=== PATIENT | female | born 1955 | race Caucasian/White ===

== ENCOUNTER → 2016-11-10 | Outpatient (CLI) | payer BC, OTHER ==
[2016-11-10 12:40] LABS: ABSOLUTE BASOPHILS # (AUTO) 0.1 10^3/uL (0.0-0.2); ABSOLUTE EOSINOPHILS # (AUTO) 0.3 10^3/uL (0.0-0.6); ABSOLUTE LYMPHOCYTES (AUTO) 3.4 10^3/uL (0.5-4.7); ABSOLUTE MONOCYTES (AUTO) 0.8 10^3/uL (0.1-1.4); ABSOLUTE NEUT (AUTO) 4.5 10^3/uL (1.7-8.2); EOSINOPHILS % (AUTO) 2.8 % (0-6); HEMATOCRIT 45.9 % (36.0-47.0); HEMOGLOBIN 15.8 g/dL (12.0-15.5); HGB HCT DIFFERENCE 1.5; LYMPHOCYTES % (AUTO) 37.7 % (13-45); MEAN CORPUSCULAR HEMOGLOBIN 30.3 pg (27.0-33.4); MEAN CORPUSCULAR HGB CONC 34.5 g/dL (32.0-36.0); MEAN CORPUSCULAR VOLUME 88 fl (80-97); MONOCYTES % (AUTO) 8.7 % (3-13); RED BLOOD COUNT 5.23 10^6/uL (3.72-5.28); RED CELL DISTRIBUTION WIDTH 14.4 % (11.5-14.0); SEGMENTED NEUTROPHILS % (AUTO) 49.8 % (42-78); WHITE BLOOD COUNT 9.1 10^3/uL (4.0-10.5)
[2016-11-10 13:05] LABS: ALANINE AMINOTRANSFERASE 29 U/L (9-52); ALBUMIN 4.3 g/dL (3.5-5.0); ALKALINE PHOSPHATASE 96 U/L (38-126); ANION GAP 11 (5-19); ASPARTATE AMINO TRANSFERASE 29 U/L (14-36); BILIRUBIN,DIRECT 0.4 mg/dL (0.0-0.4); BILIRUBIN,TOTAL 0.6 mg/dL (0.2-1.3); BLOOD UREA NITROGEN 15 mg/dL (7-20); CALCIUM 10.7 mg/dL (8.4-10.2); CARBON DIOXIDE 29 mmol/L (22-30); CHLORIDE 105 mmol/L (98-107); CREATININE RESULT 0.75 mg/dL (0.52-1.25); GLUCOSE 105 mg/dL (75-110); POTASSIUM 5.4 mmol/L (3.6-5.0); SODIUM 145.1 mmol/L (137-145); TOTAL PROTEIN 7.5 g/dL (6.3-8.2)
== END ==
LOC: OD 11:44
PROVIDERS: ATTEND Physician Assistant
DX: E55.9 Vitamin D deficiency, unspecified (principal); E03.9 Hypothyroidism, unspecified; M19.90 Unspecified osteoarthritis, unspecified site; Z79.899 Other long term (current) drug therapy
CPT/HCPCS: 36415; 80053; 85025

== ENCOUNTER → 2017-07-14 | Outpatient (CLI) | payer OTHER ==
--- NOTE | 2017-07-14 16:42 | WOMENS IMAGING REPORT ---
EXAM DESCRIPTION: 3D SCREENING MAMMO BILAT COMPLETED DATE/TIME: 07/14/2017 3:30 pm REASON FOR STUDY: SCREENING MAMMO Z12.31 ENCNTR SCREEN MAMMOGRAM FOR MALIGNANT NEOPLASM OF LYLY COMPARISON: 2008 TECHNIQUE: Standard craniocaudal and mediolateral oblique views of each breast recorded using digita l acquisition and breast tomosynthesis. LIMITATIONS: None. FINDINGS: No masses, calcifications or architectural distortion. No areas of suspicion. Read with the assistance of CAD. .[facility] - R2 Cenova Version 1.3 .[facility] Imaging - R2 Cenova Version 1.3 .[facility] Imaging - R2 Cenova Version 2.4 .[facility] [place] Cenova Version 2.4 .[facility] - R2 Corner Former Version 9.2 IMPRESSION: NORMAL MAMMOGRAM. BIRADS 1. BREAST DENSITY: a. The breasts are almost entirely fatty. BIRAD: 1 NEGATIVE RECOMMENDATION: ROUTINE SCREENING COMMENT: The patient has been notified of the results by letter per SA requirements. Additional no tification policies are in place for contacting patient with suspicious or incomplete findings. Quality ID #[id number]: The [employer] recommends an annual screening mammogram for women aged 40 years or over. This facility utilizes a reminder system to ensure that all patients receive reminder letters, and/or direct phone calls for appointments. This includes reminders for routine scr eening mammograms, diagnostic mammograms, or other Breast Imaging Interventions when appropriate. Th is patient will be placed in the appropriate reminder system. The [employer] (ACR) has developed recommendations for screening MRI of the breast s in certain patient populations, to be used in conjunction with mammography. Breast MRI surveillanc e may be appropriate for women with more than 20% lifetime risk of developing breast cancer as deter mined by genetic testing, significant family history of the disease, or history of mantle radiation f or Hodgkins Disease. ACR Practice Guidelines 2008. DBT Technology DBT is a type of tomographic mammography. With conventional mammography, overlapping breast tissue ma y make lesions difficult to detect, even with good compression. DBT uses an x-ray tube that rotates a round the breast, taking images at different angles. These images are then combined to create thin sl ices of the breast that the radiologist can view as a 3D reconstruction. The ITao unit can perform full-field digital mammograms (2D imaging); or DBT (3D imaging); or both, in a combination mode that quickly performs both the mammogram and the tomosynthesis scan while the breast is still compressed. PQRS 6045F: Fluoroscopic imaging is not utilized for breast tomosynthesis. TECHNICAL DOCUMENTATION: FINDING NUMBER: (1) ASSESSMENT: (1) JOB ID: [id number] [employer]- All Rights Reserved Reading location - IP/workstation name: [email or web address]
== END ==
LOC: WI 14:44
PROVIDERS: ATTEND Internal Medicine
DX: Z12.31 Encounter for screening mammogram for malignant neoplasm of breast (principal)
CPT/HCPCS: 77063; 77067

== ENCOUNTER 2017-11-13 03:12 | Inpatient (IN) | payer OTHER ==
[2017-11-13] MEDS ORDERED: ASPIRIN 325 MG TABLET PO ONE (03:34)
--- NOTE | 2017-11-13 03:37 | ER Document Report ---
ED General - General Chief Complaint: Chest Pain Stated Complaint: CHEST PAIN Time Seen by Provider: 11/13/17 03:25 Notes: 62-year-old lady with greater than [id number] history of smoking but no known coronary disease at this time presents with chest pain. 3 and half hours ago she was seen on the couch got up and walked felt the pounding in her heart and pain pressure in her chest. It was non-radiating. It did get worse with exertion and is now slightly better, she rates it as a 5 out of 5 but was not aware that the pain scale went up to 10. Never had this before. Mild cough that she attributes to smoking but no change. Denies fever chills. Has never had a stress test and denies having a recent EKG. TRAVEL OUTSIDE OF THE [place] IN LAST 30 DAYS: No Past Medical History - General Information source: Patient - Social History Smoking Status: Current Every Day Smoker Smoking Education Provided: Yes - The patient ED visit today was directly related to their abuse of tobacco. Family History: None Review of Systems - Review of Systems Notes: REVIEW OF SYSTEMS GEN: Denies fever, chills, weight loss ENT: Denies sore throat, nasal discharge, ear pain EYES: Denies blurry vision, eye pain, discharge CV: Chest pain and palpitations, edema RESP: Chronic cough unchanged g GI: Denies abdominal pain, nausea, vomiting, diarrhea MSK: Denies joint pain/swelling, edema, SKIN: Denies rash, skin lesions LYMPH: Denies swollen glands/lymph nodes NEURO: Denies headache, focal weakness or numbness, dizziness PSYCH: Denies depression, suicidal or homicidal ideation PHYSICAL EXAMINATION General: No acute distress, well-nourished Head: Atraumatic, normocephalic ENT: Mouth normal, oropharynx moist, no exudates or tonsillar enlargement Eyes: Conjunctiva normal, pupils equal, lids normal Neck: No JVD, supple, no guarding CVS: Normal rate, regular rhythm, no murmurs Resp: No resp distress, equal and normal breath sounds bilaterally GI: Nondistended, soft, no tenderness to palpation, no rebound or guarding Ext: No deformities, no edema, normal range of motion in upper and lower ext Back: No CVA or midline TTP Skin: No rash, warm Lymphatic: No lymphadeopathy noted Neuro: Awake, alert. Face symmetric. GCS 15. Physical Exam - Vital signs Vitals: Temp Pulse Resp BP Pulse Ox 97.6 F 85 18 174/97 H 96 11/13/17 03:13 11/13/17 03:13 11/13/17 03:13 11/13/17 03:13 11/13/17 03:13 Course - Re-evaluation Re-evalutation: 11/13/17 04:33 62-year-old lady presenting with new onset chest pain suspicious for angina along with palpitations. Monitor tracing and peripheral pulses are normal. Initial ECG does not show arrhythmia at that but does show some subtle ST depressions. No ST elevations. Patient was given adult aspirin. Patient was given nitroglycerin which relieved her pain. Labs returned about 4:20 AM showing an elevated troponin of 0.9, not meeting criteria for acute OH but concerning for early or evolving acute coronary syndrome in the setting of risk factors. Patient was reassessed at 4:20 AM and is pain-free. Discussed with Dr. Draper who will admit. - Vital Signs Vital signs: Temp Pulse Resp BP Pulse Ox 97.6 F 85 18 174/97 H 96 11/13/17 03:13 11/13/17 03:13 11/13/17 03:13 11/13/17 03:13 11/13/17 03:13 - Laboratory Result Diagrams: 11/13/17 03:41 11/13/17 03:41 Laboratory results interpreted by me: 11/13/17 11/13/17 03:41 03:41 WBC 12.9 H Absolute Neutrophils 9.2 H Glucose 141 H - Diagnostic Test Radiology reviewed: Pending, Image reviewed, Reports reviewed - EKG Interpretation by Ny EKG shows normal: Sinus rhythm Rate: Normal Rhythm: NSR Voltage: Decreased voltage, Throughout When compared to previous EKG there are: Previous EKG unavailable Additional EKG results interpreted by vt: 11/13/17 03:[address] depression in lead V5, V4 and I. This does not meet criteria for LVH and is concerning for ischemia. There is no ST elevation. Discharge - Discharge Clinical Impression: Unstable angina Condition: Fair Disposition: ADMITTED OBSERVATION Admitting Provider: Addy Unit Admitted: Telemetry Referrals: BRITTANY DRAPER MD [Primary Care Provider] - Follow up as needed
[2017-11-13 03:58] LABS: ABSOLUTE BASOPHILS # (AUTO) 0.1 10^3/uL (0.0-0.2); ABSOLUTE EOSINOPHILS # (AUTO) 0.1 10^3/uL (0.0-0.6); ABSOLUTE LYMPHOCYTES (AUTO) 2.6 10^3/uL (0.5-4.7); ABSOLUTE MONOCYTES (AUTO) 0.9 10^3/uL (0.1-1.4); ABSOLUTE NEUT (AUTO) 9.2 10^3/uL (1.7-8.2); BASOPHILS % (AUTO) 0.6 % (0-2); HEMATOCRIT 44.5 % (36.0-47.0); HEMOGLOBIN 15.1 g/dL (12.0-15.5); LYMPHOCYTES % (AUTO) 20.1 % (13-45); MEAN CORPUSCULAR HEMOGLOBIN 29.5 pg (27.0-33.4); MEAN CORPUSCULAR HGB CONC 33.8 g/dL (32.0-36.0); MEAN CORPUSCULAR VOLUME 87 fl (80-97); MONOCYTES % (AUTO) 7.2 % (3-13); PLATELET COUNT 237 10^3/uL (150-450); RED BLOOD COUNT 5.11 10^6/uL (3.72-5.28); SEGMENTED NEUTROPHILS % (AUTO) 71.1 % (42-78); TOTAL CELLS COUNTED % (AUTO) 100 %; WHITE BLOOD COUNT 12.9 10^3/uL (4.0-10.5)
[2017-11-13] MEDS: NITROGLYCERIN 0.4 MG/TAB 25 TAB/BOTTLE SL PRN ×2 (04:03→04:18)
--- NOTE | 2017-11-13 04:04 | RADIOLOGY REPORT (SQ) ---
EXAM DESCRIPTION: XR CHEST 1 VIEW COMPLETED DATE/TME: 11/13/2017 03:39 CLINICAL HISTORY: 62 years, Female, chest pain COMPARISON: None. NUMBER OF VIEWS: One TECHNIQUE: AP view the chest LIMITATIONS: None. FINDINGS: The lungs are clear. The heart is normal in size. There is no pneumothorax or pleural effusion. There is no acute fracture IMPRESSION: No acute cardiopulmonary abnormality 2010 [employer]- All Rights Reserved
[2017-11-13 04:09] LABS: ANION GAP 10 (5-19); BLOOD UREA NITROGEN 14 mg/dL (7-20); CARBON DIOXIDE 25 mmol/L (22-30); CHLORIDE 106 mmol/L (98-107); GLUCOSE 141 mg/dL (75-110); POTASSIUM 4.2 mmol/L (3.6-5.0); SODIUM 141.3 mmol/L (137-145)
[2017-11-13] MEDS ORDERED: CLOPIDOGREL BISULFATE 300 MG TABLET PO ONE (04:45)
[2017-11-13] MEDS ORDERED: HEPARIN SODIUM,PORCINE/D5W 25,000 UNIT/250 ML RTUINJ IV PRN (04:46)
[2017-11-13] MEDS ORDERED: NITROGLYCERIN/D5W 50 MG/250 ML RTUINJ IV PRN (04:48)
[2017-11-13 04:59] LABS: INTERNATIONAL RATION (INR) 0.95; PROTHROMBIN TIME 13.2 SEC (11.4-15.4)
[2017-11-13 05:00] LABS: PARTIAL THROMBOPLASTIN TIME 31.9 SEC (23.5-35.8)
[2017-11-13] MEDS ORDERED: METOPROLOL TARTRATE 25 MG TABLET PO ONE ×2 (05:30→06:45)
[2017-11-13] MEDS ORDERED: RAMIPRIL 2.5 MG CAPSULE PO ONE ×2 (06:00→07:00)
[2017-11-13] MEDS ORDERED: SIMVASTATIN 40 MG TABLET PO ONE ×2 (06:00→07:00)
[2017-11-13] MEDS ORDERED: HEPARIN SOD (PORCINE) 1,000 UNIT/ML 10 ML VIAL ONE (06:13)
[2017-11-13] MEDS: HEPARIN SOD (PORCINE) 1,000 UNIT/ML 10 ML VIAL IV PRN ×2 (06:17→17:14)
[2017-11-13 07:52] LABS: APPEARANCE,URINE CLEAR; BILIRUBIN,URINE NEGATIVE (NEGATIVE); COLOR,URINE STRAW; GLUCOSE, URINE NEGATIVE (NEGATIVE); KETONES,URINE NEGATIVE (NEGATIVE); LEUKOCYTE ESTERASE,URINE TRACE (NEGATIVE); NITRITE,URINE NEGATIVE (NEGATIVE); PROTEIN,URINE NEGATIVE (NEGATIVE); URINE SPECIFIC GRAVITY 1.005; UROBILINOGEN,URINE NEGATIVE mg/dL (<2.0)
[2017-11-13] MEDS ORDERED: ASPIRIN 81 MG TABLET, ENT COATED PO SCH (10:00)
[2017-11-13 10:43] LABS: ABSOLUTE BASOPHILS # (AUTO) 0.1 10^3/uL (0.0-0.2); ABSOLUTE EOSINOPHILS # (AUTO) 0.1 10^3/uL (0.0-0.6); ABSOLUTE LYMPHOCYTES (AUTO) 3.8 10^3/uL (0.5-4.7); ABSOLUTE MONOCYTES (AUTO) 0.9 10^3/uL (0.1-1.4); ABSOLUTE NEUT (AUTO) 6.5 10^3/uL (1.7-8.2); BASOPHILS % (AUTO) 0.8 % (0-2); EOSINOPHILS % (AUTO) 0.8 % (0-6); HEMATOCRIT 41.7 % (36.0-47.0); HEMOGLOBIN 14.1 g/dL (12.0-15.5); LYMPHOCYTES % (AUTO) 33.2 % (13-45); MEAN CORPUSCULAR HEMOGLOBIN 29.2 pg (27.0-33.4); MEAN CORPUSCULAR HGB CONC 33.7 g/dL (32.0-36.0); MEAN CORPUSCULAR VOLUME 87 fl (80-97); MONOCYTES % (AUTO) 7.6 % (3-13); PLATELET COUNT 215 10^3/uL (150-450); RED BLOOD COUNT 4.82 10^6/uL (3.72-5.28); RED CELL DISTRIBUTION WIDTH 13.8 % (11.5-14.0); SEGMENTED NEUTROPHILS % (AUTO) 57.6 % (42-78); TOTAL CELLS COUNTED % (AUTO) 100 %; WHITE BLOOD COUNT 11.4 10^3/uL (4.0-10.5)
[2017-11-13 11:01] LABS: PROTHROMBIN TIME 13.7 SEC (11.4-15.4)
[2017-11-13 11:03] LABS: PARTIAL THROMBOPLASTIN TIME 58.6 SEC (23.5-35.8)
[2017-11-13 11:13] LABS: CREATINE KINASE MB 16.4 ng/mL (<4.55)
[2017-11-13 11:18] LABS: TROPONIN I 4.3 ng/mL
--- NOTE | 2017-11-13 15:09 | XCELERA REPORT ---
[address] [address] Transthoracic Echocardiogram Report Name: MEGHANA NEAL Age: 62 yrs Gender: Female : 1955 Patient Status: Inpatient Patient [address] Study Date: 11/13/2017 08:43 AM Height: 68 in Weight: 205 lb BSA: 2.1 m2 BP: 8/ mmHg Procedure: A two-dimensional transthoracic echocardiogram with color flow and Doppler was performed. Study Quality: Poor. Images were not obtained from all of the standard acoustic windows due to the limited scope of the study. Reason For Study: LV Function, size, wall thickness,Valve Function History: CHEST PAIN / NSTEMI. Ordering Physician: BRITTANY DRAPER Performed By: Michelle Butterfield Interpretation Summary The left ventricle is grossly normal size. There is normal left ventricular wall thickness. No True apical 2 chamber views obtained.Hence cannot comment on the apical anterior , the basal anterior, the basal inferior and apical inferior renee.The mid anterior , the mid inferior and the rest of the LV renee contract normally. .Normal LVEF at 65% in the limited views. The left atrial size is normal. There is no LVOT obstruction. There is aortic sclerosis without aortic stenosis. There is no evidence of mitral valve prolapse. There is a trace amount of mitral regurgitation There is no mitral valve stenosis. There is no tricuspid stenosis. Possible Trace TR.Unable to calculate RVSP due to lack of TR jet. The pulmonic valve is not well visualized. There is no pericardial effusion. MMode/2D Measurements & Calculations RVDd: 2.8 cm LVIDd: 5.1 cm FS: 34.4 % Ao root diam: 2.9 cm IVSd: 0.94 cm LVIDs: 3.4 cm EDV(Teich): 126.3 ml Ao root area: 6.4 cm2 LVPWd: 0.85 cm ESV(Teich): 46.5 ml LA dimension: 3.2 cm EF(Teich): 63.2 % LVOT diam: 2.0 cm LVOT area: 3.2 cm2 Doppler Measurements & Calculations MV E max samantha: MV P1/2t max samantha: Ao V2 max: LV V1 max P.3 cm/sec 73.0 cm/sec 63.0 cm/sec 1.5 mmHg MV A max samantha: MV P1/2t: 59.5 msec Ao max P.6 mmHg LV V1 max: 67.8 cm/sec MVA(P1/2t): 3.7 cm2 VIKTORIYA(V,D): 3.1 cm2 61.7 cm/sec MV E/A: 1.1 MV dec slope: 359.1 cm/sec2 MV dec time: 0.32 sec PA V2 max: TR max samantha: MV P1/2t-pr_phl: 76.4 cm/sec 281.0 cm/sec 59.5 msec PA max P.3 mmHgTR max P.6 mmHg Left Ventricle The left ventricle is grossly normal size. There is normal left ventricular wall thickness. No True apical 2 chamber views obtained.Hence cannot comment on the apical anterior , the basal anterior, the basal inferior and apical inferior renee.The mid anterior , the mid inferior and the rest of the LV renee contract normally. .Normal LVEF at 65% in the limited views. Doppler measurements suggest normal left ventricular diastolic function. Right Ventricle The right ventricle is not well visualized secondary to technical limitations. Atria Right atrium not well visualized secondary to technical limitations. The left atrial size is normal. Mitral Valve There is no evidence of mitral valve prolapse. There is no vegetation seen on the mitral valve. There is no mitral valve stenosis. There is a trace amount of mitral regurgitation. Aortic Valve There is no aortic valvular vegetation. There is no aortic valve stenosis. There is no LVOT obstruction. There is aortic sclerosis without aortic stenosis. No aortic regurgitation is present. Tricuspid Valve There is no tricuspid stenosis. Possible Trace TR.Unable to calculate RVSP due to lack of TR jet. Pulmonic Valve The pulmonic valve is not well visualized. Great Vessels The aortic root is not well visualized. Effusions There is no pericardial effusion. : BRITTANY DRAPER > Laura Gill
[2017-11-13 15:31] VITALS: BP 146/71
--- NOTE | 2017-11-13 15:59 | PDOC H&P ---
History of Present Illness Admission Date/PCP: 11/13/17 04:34 BRITTANY DRAPER MD History of Present Illness: MEGHANA NEAL is a 62 year old female, she came to the emergency room earlier this morning for evaluation of acute onset substernal chest pain feels as pressure, in the emergency room she was evaluated, the 12-lead EKG demonstrated sinus rhythm, ST depression in precordial leads, the initial troponin when she presented was 0.9 subsequently is increased to 4. She started on anti-ischemic therapy including IV heparin, Plavix 300 mg x1 dose, beta-ana, metoprolol, nitro drip Past Medical History Cardiac Medical History: Reports: Hyperlipidema Social History Smoking Status: Current Every Day Smoker Family History Family History: None Parental Family History Reviewed: Yes Children Family History Reviewed: Yes Sibling(s) Family History Reviewed.: Yes Medication/Allergy Home Medications: Aspirin [Aspirin 81 mg Chewable Tablet] 81 mg PO DAILY 11/13/17 Atorvastatin Calcium [Lipitor 40 mg Tablet] 40 mg PO DAILY 11/13/17 Ergocalciferol (Vitamin D2) [Drisdol 50,000 unit (1.25MG) Capsule] 50,000 unit PO WE@1000 11/13/17 Famotidine [Pepcid 20 mg Tablet] 40 mg PO DAILY 11/13/17 Fexofenadine HCl [Melissa] 180 mg PO DAILYP PRN 11/13/17 Ibuprofen [Motrin 800 mg Tablet] 800 mg PO Q12HP PRN 11/13/17 Ipratropium/Albuterol Sulfate [Combivent Respimat 4 gm Mdi] 2 puff IH Q12 Magnesium 250 mg PO DAILY 11/13/17 Multivitamin [Tab-A-Hugo (Multiple Vitamin) Tablet] 1 tab PO DAILY 11/13/17 Potassium 99 mg PO DAILY 11/13/17 Tizanidine HCl [Zanaflex 4 mg Tablet] 4 mg PO Q12HP PRN 11/13/17 Zinc [Zinc Chelated] 50 mg PO DAILY 11/13/17 Allergies/Adverse Reactions: No Known Allergies Allergy (Verified 11/13/17 05:12) Review of Systems Constitutional: ABSENT: chills, fever(s), headache(s), weight gain, weight loss Eyes: ABSENT: visual disturbances Ears: ABSENT: hearing changes Cardiovascular: PRESENT: chest pain. ABSENT: dyspnea on exertion, edema, orthropnea, palpitations Respiratory: ABSENT: cough, hemoptysis Gastrointestinal: ABSENT: abdominal pain, constipation, diarrhea, hematemesis, hematochezia, nausea, vomiting Genitourinary: ABSENT: dysuria, hematuria Musculoskeletal: ABSENT: joint swelling Integumentary: ABSENT: rash, wounds Neurological: ABSENT: abnormal gait, abnormal speech, confusion, dizziness, focal weakness, syncope Psychiatric: ABSENT: anxiety, depression, homidical ideation, suicidal ideation Endocrine: ABSENT: cold intolerance, heat intolerance, menstrual abnormalities, polydipsia, polyuria Hematologic/Lymphatic: ABSENT: easy bleeding, easy bruising, lymphadenopathy Physical Exam Vital Signs: Temp Pulse Resp BP Pulse Ox 97.6 F 60 17 146/71 H 93 11/13/17 03:13 11/13/17 15:28 11/13/17 15:28 11/13/17 15:28 11/13/17 15:28 Intake & Output 11/12/17 11/13/17 11/14/17 06:59 06:59 06:59 Intake Total 1 Balance 1 General appearance: PRESENT: no acute distress, well-developed, well-nourished Head exam: PRESENT: atraumatic, normocephalic Eye exam: PRESENT: conjunctiva pink, EOMI, PERRLA Ear exam: PRESENT: normal external ear exam Mouth exam: PRESENT: moist, tongue midline Neck exam: PRESENT: full ROM Respiratory exam: PRESENT: clear to auscultation [place] Cardiovascular exam: PRESENT: RRR, +S1, +S2 Pulses: PRESENT: normal dorsalis pedis pul, +2 pedal pulses bilateral Vascular exam: PRESENT: normal capillary refill GI/Abdominal exam: PRESENT: normal bowel sounds, soft Rectal exam: PRESENT: deferred Neurological exam: PRESENT: alert, awake, oriented to person, oriented to place , oriented to time, oriented to situation, CN II-XII grossly intact Psychiatric exam: PRESENT: appropriate affect, normal mood Skin exam: PRESENT: dry, intact, warm Results Laboratory Results: 11/13/17 10:16 11/13/17 11/13/17 07:00 10:16 WBC 11.4 H RBC 4.82 Hgb 14.1 Hct 41.7 MCV 87 MCH 29.2 MCHC 33.7 RDW 13.8 Plt Count 215 Seg Neutrophils % 57.6 Lymphocytes % 33.2 Monocytes % 7.6 Eosinophils % 0.8 Basophils % 0.8 Absolute Neutrophils 6.5 Absolute Lymphocytes 3.8 Absolute Monocytes 0.9 Absolute Eosinophils 0.1 Absolute Basophils 0.1 Urine Color STRAW Urine Appearance CLEAR Urine pH 7.0 Ur Specific [place] 1.005 Urine Protein NEGATIVE Urine Glucose (UA) NEGATIVE Urine Ketones NEGATIVE Urine Blood NEGATIVE Urine Nitrite NEGATIVE Ur Leukocyte Esterase TRACE H Urine WBC (Auto) 4 Urine RBC (Auto) 0 11/13/17 10:16 CK-MB (CK-2) 16.40 H Troponin I 4.300 Impressions: Chest X-Ray 11/13/17 03:39 IMPRESSION: No acute cardiopulmonary abnormality 2010 [employer]- All Rights Reserved Assessment & Plan - Diagnosis (1) Non-ST elevated myocardial infarction (non-STEMI) Is this a current diagnosis for this admission?: Yes Plan: Start IV heparin, Plavix 200 mg, nitro drip, beta-ana, statin,ACEI, 2D echo , consultation from cardiology
--- NOTE | 2017-11-13 16:27 | PDOC TRANSFER SUMMARY ---
General Admission Date/PCP: 11/13/17 04:34 BRITTANY DRAPER MD Admission Date: 11/13/17 Accepting Facility: [facility] Resuscitation Status: Full Code - Transfer Diagnosis (1) Non-ST elevated myocardial infarction (non-STEMI) Is this a current diagnosis for this admission?: Yes - Transfer Medications Home Medications: Aspirin [Aspirin 81 mg Chewable Tablet] 81 mg PO DAILY 11/13/17 Atorvastatin Calcium [Lipitor 40 mg Tablet] 40 mg PO DAILY 11/13/17 Ergocalciferol (Vitamin D2) [Drisdol 50,000 unit (1.25MG) Capsule] 50,000 unit PO WE@1000 11/13/17 Famotidine [Pepcid 20 mg Tablet] 40 mg PO DAILY 11/13/17 Fexofenadine HCl [Melissa] 180 mg PO DAILYP PRN 11/13/17 Ibuprofen [Motrin 800 mg Tablet] 800 mg PO Q12HP PRN 11/13/17 Ipratropium/Albuterol Sulfate [Combivent Respimat 4 gm Mdi] 2 puff IH Q12 Magnesium 250 mg PO DAILY 11/13/17 Multivitamin [Tab-A-Hugo (Multiple Vitamin) Tablet] 1 tab PO DAILY 11/13/17 Potassium 99 mg PO DAILY 11/13/17 Tizanidine HCl [Zanaflex 4 mg Tablet] 4 mg PO Q12HP PRN 11/13/17 Zinc [Zinc Chelated] 50 mg PO DAILY 11/13/17 Transfer Medications: Current Medications Aspirin (Ecotrin 81 Mg Ec Tablet) 162 mg PO DAILY J LUIS Stop: 12/13/17 09:59 Last Admin: 11/13/17 09:51 Dose: 162 mg Clopidogrel Bisulfate (Plavix 75 Mg Tablet) 75 mg PO DAILY J LUIS Stop: 12/14/17 09:59 Heparin Sodium (Porcine) (Heparin Inj 1,000 Unit/Ml 10 Ml Vial) 0 - 12,000 unit IV .BOLUS PER PROTOCOL PRN; Protocol PRN Reason: RESPOND TO aPTT VALUE Stop: 12/13/17 07:46 Last Admin: 11/13/17 06:17 Dose: 4,000 units Heparin Sodium/Dextrose (Heparin Rtu 25,000 Unit/250 Ml D5w Premix) 25,000 unit in 250 mls @ 0 mls/hr IV CONTINUOUS PRN; Protocol; Titrate PRN Reason: THIS MED IS NOT "PRN" Stop: 12/13/17 04:45 Last Admin: 11/13/17 06:25 Dose: 10 ml/hr, 10 mls/hr Nitroglycerin/Dextrose (Ntg Rtu 50 Mg/D5w 250 Ml Iv Premix Bottle) 50 mg in 250 mls @ 0 mls/hr IV CONTINUOUS PRN; Protocol; Titrate PRN Reason: THIS MED IS NOT "PRN" Stop: 12/13/17 04:47 Last Titration: 11/13/17 16:23 Dose: 5 mcg/min, 1.5 mls/hr Metoprolol Tartrate (Lopressor 25 Mg Tablet) 25 mg PO Q12 J LUIS Stop: 12/13/17 21:59 Ramipril (Altace 2.5 Mg Capsule) 2.5 mg PO DAILY J LUIS Stop: 12/14/17 09:59 Simvastatin (Zocor 40 Mg Tablet) 80 mg PO QHS J LUIS Stop: 12/13/17 21:59 Sodium Chloride (Saline Flush 2.5 Ml Monoject Prefil Syrin) 2.5 ml IV Q8 J LUIS Stop: 12/13/17 05:59 Last Admin: 11/13/17 13:43 Dose: 2.5 ml - Allergies Allergies/Adverse Reactions: No Known Allergies Allergy (Verified 11/13/17 05:12) Hospital Course Hospital Course: Patient a recalcitrant smoker admitted for the management of non-ST elevated [place] , the plan is to transfer to [facility] for cardiac catheterization and possible coronary intervention Physical Exam Vital Signs: Temp Pulse Resp BP Pulse Ox 97.6 F 60 17 146/71 H 93 11/13/17 03:13 11/13/17 15:28 11/13/17 15:28 11/13/17 15:28 11/13/17 15:28 Intake & Output 11/12/17 11/13/17 11/14/17 06:59 06:59 06:59 Intake Total 1 18 Balance 1 18 General appearance: PRESENT: no acute distress, well-developed, well-nourished Head exam: PRESENT: atraumatic, normocephalic Eye exam: PRESENT: conjunctiva pink, EOMI, PERRLA Ear exam: PRESENT: normal external ear exam Mouth exam: PRESENT: moist, tongue midline Respiratory exam: PRESENT: clear to auscultation [place] Cardiovascular exam: PRESENT: RRR, +S1, +S2 Pulses: PRESENT: normal dorsalis pedis pul Vascular exam: PRESENT: normal capillary refill GI/Abdominal exam: PRESENT: normal bowel sounds, soft Rectal exam: PRESENT: deferred Extremities exam: PRESENT: full ROM Neurological exam: PRESENT: alert, awake, oriented to person, oriented to place , oriented to time, oriented to situation, CN II-XII grossly intact Psychiatric exam: PRESENT: appropriate affect, normal mood Skin exam: PRESENT: dry, intact, warm Results Laboratory Results: 11/13/17 10:16 11/13/17 11/13/17 07:00 10:16 WBC 11.4 H RBC 4.82 Hgb 14.1 Hct 41.7 MCV 87 MCH 29.2 MCHC 33.7 RDW 13.8 Plt Count 215 Seg Neutrophils % 57.6 Lymphocytes % 33.2 Monocytes % 7.6 Eosinophils % 0.8 Basophils % 0.8 Absolute Neutrophils 6.5 Absolute Lymphocytes 3.8 Absolute Monocytes 0.9 Absolute Eosinophils 0.1 Absolute Basophils 0.1 Urine Color STRAW Urine Appearance CLEAR Urine pH 7.0 Ur Specific [place] 1.005 Urine Protein NEGATIVE Urine Glucose (UA) NEGATIVE Urine Ketones NEGATIVE Urine Blood NEGATIVE Urine Nitrite NEGATIVE Ur Leukocyte Esterase TRACE H Urine WBC (Auto) 4 Urine RBC (Auto) 0 11/13/17 10:16 CK-MB (CK-2) 16.40 H Troponin I 4.300 Impressions: Chest X-Ray 11/13/17 03:39 IMPRESSION: No acute cardiopulmonary abnormality 2010 [employer]- All Rights Reserved
[2017-11-13 17:19] LABS: CREATINE KINASE MB 13.7 ng/mL (<4.55); TROPONIN I 3.91 ng/mL
--- NOTE | 2017-11-13 21:03 | EKG REPORT ---
SEVERITY:- ABNORMAL ECG - SINUS RHYTHM BORDERLINE RIGHT AXIS DEVIATION ABNORMAL T, CONSIDER ISCHEMIA, ANT-LAT LEADS : Confirmed by: Laura Gill MD 13-Nov-2017 21:02:30
--- NOTE | 2017-11-13 21:03 | EKG REPORT ---
SEVERITY:- BORDERLINE ECG - SINUS RHYTHM LOW VOLTAGE WITH RIGHT AXIS DEVIATION : Confirmed by: Laura Gill MD 13-Nov-2017 21:02:43
--- NOTE | 2017-11-13 21:03 | EKG REPORT ---
SEVERITY:- OTHERWISE NORMAL ECG - SINUS RHYTHM BORDERLINE RIGHT AXIS DEVIATION : Confirmed by: Laura Gill MD 13-Nov-2017 21:02:39
--- NOTE | 2017-11-13 21:03 | EKG REPORT ---
SEVERITY:- ABNORMAL ECG - SINUS RHYTHM ATRIAL PREMATURE COMPLEX BORDERLINE RIGHT AXIS DEVIATION ABNORMAL T, CONSIDER ISCHEMIA, ANT-LAT LEADS : Confirmed by: Laura Gill MD 13-Nov-2017 21:02:35
[2017-11-13] MEDS ORDERED: SIMVASTATIN 40 MG TABLET PO SCH (22:00)
[2017-11-13] MEDS ORDERED: METOPROLOL TARTRATE 25 MG TABLET PO SCH (22:00)
[2017-11-14] MEDS ORDERED: CLOPIDOGREL BISULFATE 75 MG TABLET PO SCH (10:00)
[2017-11-14] MEDS ORDERED: RAMIPRIL 2.5 MG CAPSULE PO SCH (10:00)
== END 2017-11-13 18:00 | disposition short-term general hospital (02) | DRG 282 ==
LOC: ER 03:12 → EH 04:34 → OBSVTOIN 04:34 → 3N 15:54
PROVIDERS: ADMIT Internal Medicine; ATTEND Internal Medicine
DX: I21.4 Non-ST elevation (NSTEMI) myocardial infarction (principal); I25.10 Atherosclerotic heart disease of native coronary artery without angina pectoris; E78.5 Hyperlipidemia, unspecified; F17.200 Nicotine dependence, unspecified, uncomplicated; Z79.52 Long term (current) use of systemic steroids
CPT/HCPCS: 36415; 71045; 80048; 81001; 82553; 84484; 85025; 85610; 85730; 93005; 93010; 93306; 96365; 99291; J1644; J3490

== ENCOUNTER → 2017-12-02 | Outpatient (CLI) | payer OTHER ==
[2017-12-02 13:07] LABS: ANION GAP 7 (5-19); BLOOD UREA NITROGEN 16 mg/dL (7-20); CALCIUM 9.6 mg/dL (8.4-10.2); CARBON DIOXIDE 30 mmol/L (22-30); CHLORIDE 108 mmol/L (98-107); GLUCOSE 108 mg/dL (75-110); POTASSIUM 4.8 mmol/L (3.6-5.0); SODIUM 144.5 mmol/L (137-145)
== END ==
LOC: OD 12:10
PROVIDERS: ATTEND Internal Medicine Cardiovascular Disease
DX: I42.9 Cardiomyopathy, unspecified (principal)
CPT/HCPCS: 36415; 80048

== ENCOUNTER → 2017-12-30 | Outpatient (CLI) | payer OTHER ==
--- NOTE | 2017-12-30 13:18 | WOMENS IMAGING REPORT ---
EXAM DESCRIPTION: BONE DENSITY HIP/SPINE COMPLETED DATE/TIME: 12/30/2017 12:59 pm REASON FOR STUDY: OSTEOPOROSIS M81.0 AGE-RELATED OSTEOPOROSIS W/O CURRENT PATHOLOGICAL FRAC COMPARISON: None. TECHNIQUE: Dual-Energy X-ray Absorptiometry (DEXA) of the AP Spine and Hip. LIMITATIONS: None. FINDINGS: LUMBAR SPINE: The bone mineral density (BMD) measured from L1-L4 in the AP projection correlates with a T-score of 0.5, which is normal as defined by the World Health Organization. HIP: The bone mineral density (BMD) measured in the left hip correlates with a T-score of -1.2, which is o steopenia as defined by the World Health Organization. IMPRESSION: 1. LUMBAR SPINE: Normal 2. HIP: Osteopenia COMMENT: The World Health Organization defines low BMD as follows: T-score: Normal: Greater than -1.0 Osteopenia: Between -1.0 and -2.5 Osteoporosis: Less than -2.5 without fractures Established osteoporosis: Less than -2.5 with fractures In general, you may wish to consider: Diagnosis Treatment Follow-up DEXA Normal BMD Prevention 2-3 years Osteopenia Prevention/Therapy 1-2 years Osteoporosis Therapy Yearly TECHNICAL DOCUMENTATION: JOB ID: [id number] [employer]- All Rights Reserved Reading location - IP/workstation name: [email or web address]
== END ==
LOC: WI 10:04
PROVIDERS: ATTEND Internal Medicine
DX: M81.0 Age-related osteoporosis without current pathological fracture (principal)
CPT/HCPCS: 77080

== ENCOUNTER → 2019-09-05 | Outpatient (CLI) | payer MEDICARE ==
[~2019-09-05] MED LIST: REGADENOSON INJ 0.4 MG/5 ML DISP.SYRIN IV ONE
--- NOTE | 2019-09-05 13:58 | DRAGON STRESS TEST REPORT ---
Pharmacological nuclear stress test Date: September 05, 2019 Referring physician: Gigi Deluca MD Performing physician: Gigi Deluca MD Indication: Chest pain Clinical history 64-year-old lady with known coronary artery disease, systemic hypertension and dyslipidemia who presents with chest pain and fatigue. Procedure The patient presented to the stress lab. Initially rest images were obtained according to standard protocol after the injection of 13.54 millicurie technetium 99m sestamibi. Subsequently the patient underwent pharmacological stress utilizing 0.4 mg of regadenoson intravenously. The patient's EKG and vital signs were monitored throughout the procedure. Subsequently patient was injected with 43.4 millicuries of technetium 99m sestamibi. After a period of rest, stress images were obtained according to standard protocol. EKG showed sinus bradycardia at 48 beats per minute. The patient's stress EKG did not show any evidence for myocardial ischemia. There were no arrhythmias observed. Raw as well as processed rest and stress images were reviewed. There was mild to moderate gut uptake which did not interfere with the study. The rest and stress images show small to medium size, moderately intense fixed defect in the mid basal anterior wall with no significant reversibility. There is normal contractility post-rest. The calculated ejection fraction is 54 %. The TID ratio is 1.03. Conclusion The stress EKG is negative for myocardial ischemia There is no scintigraphic evidence of myocardial infarction or ischemia provoked by pharmacological stress. There is normal contractility post-stress. The gated left ventricular ejection fraction is 54 %. The patient will be given an appointment to discuss these results. [facility]
--- NOTE | 2019-09-05 21:40 | XCELERA REPORT ---
[address] [address] Transthoracic Echocardiogram Report Name: MEGHANA NEAL Age: 64 yrs Gender: Female : 1955 Patient Status: Outpatient Patient Location: RAD Study Date: 09/05/2019 11:21 AM History: CAD Chest pain Systemic hypertension Dyslipidemia Height: 66 in Weight: 210 lb BSA: 2.0 m2 Procedure: A complete two-dimensional transthoracic echocardiogram was performed (2D, M-mode, spectral and color flow Doppler). The study was technically difficult with many images being suboptimal in quality. Reason For Study: CP Previous Evaluation: A previous study was performed on 11/13/2017-LVEF preserved. History: CAD. Smoker: current. Dyslipidemia. Obesity. Shortness of breath. Chest pain. Ordering Physician: NANETTE MONTGOMERY Performed By: Khanh Viramontes Interpretation Summary Left ventricular systolic function is normal. The Ejection Fraction estimate is 55-60% The right ventricle is normal in size and function. There is a trace amount of mitral regurgitation There is no aortic valve stenosis There is a trace amount of tricuspid regurgitation There is mild pulmonary hypertension by echo There is no pericardial effusion. MMode/2D Measurements & Calculations RVDd: 3.2 cm LVIDd: 5.5 cm FS: 39.5 % Ao root diam: 2.8 cm IVSd: 0.96 cm LVIDs: 3.3 cm EDV(Teich): 148.4 ml Ao root area: 6.0 cm2 LVPWd: 0.95 cm ESV(Teich): 45.4 ml LA dimension: 3.5 cm EF(Teich): 69.4 % Doppler Measurements & Calculations MV E max samantha: MV P1/2t max samantha: Ao V2 max: LV V1 max P.2 cm/sec 91.6 cm/sec 137.9 cm/sec 4.2 mmHg MV A max samantha: MV P1/2t: 69.0 msec Ao max PG: LV V1 max: 72.5 cm/sec MVA(P1/2t): 3.2 cm2 7.6 mmHg 103.0 cm/sec MV E/A: 1.1 MV dec slope: LV dP/dt: 1298 mmHg/s 388.8 cm/sec2 MV dec time: 0.24 sec PA V2 max: PI end-d samantha: TR max samantha: MV P1/2t-pr_phl: 105.1 cm/sec 119.4 cm/sec 256.3 cm/sec 69.0 msec PA max PG: TR max P.4 mmHg 26.3 mmHg Left Ventricle The left ventricle is grossly normal size. There is mild concentric left ventricular hypertrophy. Left ventricular systolic function is normal. The Ejection Fraction estimate is 55-60%. Doppler measurements suggest pseudonormalized left ventricular relaxation, which is associated with grade II/IV or mild to moderate diastolic dysfunction. No regional wall motion abnormalities noted. Right Ventricle The right ventricle is normal in size and function. Atria The right atrium is normal. The left atrium is mildly dilated. The thickening of interatrial septum suggests lipomatous hypertrophy. There is no Doppler evidence for an interatrial shunt. Mitral Valve The mitral valve is grossly normal. There is a trace amount of mitral regurgitation. Aortic Valve The aortic valve is mildly calcified. The aortic valve is sclerotic and shows some degree of functional abnormality. The aortic valve opens well. There is no aortic valve stenosis. Tricuspid Valve The tricuspid valve is normal in structure and function. There is a trace amount of tricuspid regurgitation. Best estimated RVSP is approximately 30-35 mm Hg mm/Hg. There is mild pulmonary hypertension by echo. Pulmonic Valve The pulmonic valve is not well seen, but is grossly normal. There is no pulmonic valvular stenosis. There is a mild to moderate amount of pulmonic regurgitation. Great Vessels The aortic root is normal size. The inferior vena cava appeared normal and decreased > 50% with respiration (RAP 5-10 mmHg). Effusions There is no pericardial effusion. : NANETTE MONTGOMERY Anil
== END ==
LOC: RAD 08:04
PROVIDERS: ATTEND Internal Medicine
DX: R07.9 Chest pain, unspecified (principal); I25.10 Atherosclerotic heart disease of native coronary artery without angina pectoris; R06.02 Shortness of breath; I10 Essential (primary) hypertension; E78.5 Hyperlipidemia, unspecified; R53.83 Other fatigue; F17.200 Nicotine dependence, unspecified, uncomplicated; E66.9 Obesity, unspecified
CPT/HCPCS: 93306; 93017; 78452; A9500; J2785; Q9969

== ENCOUNTER → 2019-11-01 | Outpatient (CLI) | payer MEDICARE ==
--- NOTE | 2019-11-01 15:59 | RADIOLOGY REPORT (SQ) ---
EXAM DESCRIPTION: VENOUS UNILATERAL LOWER IMAGES COMPLETED DATE/TIME: 11/01/2019 3:51 pm REASON FOR STUDY: RLE SWELLING R22.41 LOCALIZED SWELLING, MASS AND LUMP, RIGHT LOWER LIMB COMPARISON: None. TECHNIQUE: Dynamic and static sánchez scale and color images acquired of the right leg venous system. S elected spectral images acquired with additional compression and augmentation maneuvers. The contrala teral common femoral vein and saphenofemoral junction were also imaged. Images stored on PACS. LIMITATIONS: None. FINDINGS: COMMON FEMORAL: Normal phasicity, compression and augmentation. No visualized echogenic ma terial on sánchez scale. No defects on color images. FEMORAL: Normal compression and augmentation. No visualized echogenic material on sánchez scale. No defe cts on color images. POPLITEAL: Normal compression, augmentation. No visualized echogenic material on sánchez scale. No defec ts on color images. CALF VESSELS: Normal compression, augmentation. No visualized echogenic material on sánchez scale. No de fects on color images. GSV and SSV: Normal compression, augmentation. No visualized echogenic material on sánchez scale. No def ects on color images. ANY DEEP VENOUS INSUFFICIENCY: Not evaluated. ANY EVIDENCE OF POPLITEAL CYST: No. OTHER: No other significant finding. CONTRALATERAL COMMON FEMORAL VEIN AND SAPHENOFEMORAL JUNCTION: Normal phasicity, compression and augmentation. No visualized echogenic material on sánchez scale. No de fects on color images. IMPRESSION: NO EVIDENCE DVT OR SVT IN THE RIGHT LEG. TECHNICAL DOCUMENTATION: JOB ID: [id number] 2010 [employer]- All Rights Reserved Reading location - IP/workstation name: [email or web address]
== END ==
LOC: SP 14:34
PROVIDERS: ATTEND Internal Medicine
DX: R22.41 Localized swelling, mass and lump, right lower limb (principal)
CPT/HCPCS: 93971